=== PATIENT | female | born 1950 | race Caucasian/White ===

== ENCOUNTER 2018-11-29 06:24 | Day surgery (SDC) | payer OTHER ==
[~2018-11-29] VITALS: Ht 162.6 cm; Wt 59.0 kg
[2018-11-29 07:17] VITALS: BP 140/76
[2018-11-29 12:17] VITALS: BP 117/65
== END 2018-11-29 10:50 | disposition home or self-care (01) ==
LOC: GI 06:24 → OR 07:30 → GI 10:50
DX: K21.0 Gastro-esophageal reflux disease with esophagitis (principal); K29.70 Gastritis, unspecified, without bleeding; I10 Essential (primary) hypertension; M19.90 Unspecified osteoarthritis, unspecified site; F41.9 Anxiety disorder, unspecified; Z88.0 Allergy status to penicillin; Z88.5 Allergy status to narcotic agent; Z88.3 Allergy status to other anti-infective agents; Z88.8 Allergy status to other drugs, medicaments and biological substances; Z79.82 Long term (current) use of aspirin; Z79.899 Other long term (current) drug therapy; Z90.710 Acquired absence of both cervix and uterus; Z90.49 Acquired absence of other specified parts of digestive tract; Z98.890 Other specified postprocedural states
CPT/HCPCS: 43235; J1200; J1610; J2250; J2310; J3010; J3490